=== PATIENT | male | born 1960 | race Caucasian/White ===

== ENCOUNTER 2020-04-03 08:08 | Emergency (ER) | payer SELFPAY ==
[2020-04-03 08:42] LABS: BASO # 0.1 (0.02-0.10); EOS # 0.3 (0.04-0.40); EOS % 2.4 % (0.0-4.0); HEMATOCRIT 48.9 % (42.0-52.0); HEMOGLOBIN 16.2 g/dL (13.5-18.0); LYMPH# 2.8 (1.50-4.00); MEAN CELL VOLUME 92 fl (78-100); MEAN CORPUSCULAR HEMOGLOBIN 31 pg (27-31); MEAN CORPUSCULAR HGB CONC 33 g/dL (33-37); MEAN PLATELET VOLUME 11.5 fl (7.4-10.4); MONO # 0.9 (0.20-0.80); NEU # 6.7 (1.40-6.50); PLATELET COUNT 192 K/mm3 (130-400); RED BLOOD COUNT 5.32 M/mm3 (4.20-5.60); RED CELL DISTRIBUTION WIDTH 13.8 % (11.5-14.5); WHITE BLOOD COUNT 10.7 K/mm3 (4.8-10.8)
[2020-04-03] MEDS ORDERED: NITROGLYCERIN0.4 M1 SL (08:48)
[2020-04-03 08:53] LABS: POTASSIUM 4.5 mmol/L (3.5-5.1)
[2020-04-03 08:54] LABS: CALCIUM 8.7 mg/dL (8.3-10.5)
[2020-04-03 08:55] LABS: TOTAL PROTEIN 6.7 g/dL (6.4-8.3)
[2020-04-03 09:22] LABS: PROTHROMBIN TIME 9.4 SECONDS (9.0-12.0)
[2020-04-03 09:24] LABS: D-DIMER 0.44 mg/L FEU (0.15-0.50)
[2020-04-03 09:41] LABS: TROPONIN-I 4.02 ng/mL (<0.030)
[2020-04-03 12:16] VITALS: BP 115/82
== END 2020-04-03 11:43 | disposition short-term general hospital (02) ==
LOC: ED 08:08
PROVIDERS: Physician Assistant
DX: I21.4 Non-ST elevation (NSTEMI) myocardial infarction (principal); I25.2 Old myocardial infarction; E11.9 Type 2 diabetes mellitus without complications; E78.5 Hyperlipidemia, unspecified; F17.210 Nicotine dependence, cigarettes, uncomplicated; Z95.9 Presence of cardiac and vascular implant and graft, unspecified
CPT/HCPCS: J1644; J2270; J7030

== ENCOUNTER → 2020-04-17 | Outpatient (CLI) | payer SELFPAY ==
[2020-04-03 12:16] VITALS: BP 115/82
[~2020-04-17] MED LIST: NITROGLYCERIN0.4 M1 SL
== END ==
LOC: AMSURD 10:57
DX: I25.10 Atherosclerotic heart disease of native coronary artery without angina pectoris (principal)